=== PATIENT | male | born 1965 | race Caucasian/White ===

== ENCOUNTER 2017-09-20 16:03 | Emergency (ER) | payer OTHER ==
[~2017-09-20] VITALS: Ht 172.7 cm; Wt 86.0 kg
[2017-09-20 16:05] VITALS: BP 166/87; PULSE 112; RESP 19; O2SAT 98
[2017-09-20] MEDS ORDERED: METOCLOPRAMIDE HCL 10 MG/2 ML VIAL IV PUSH ONE (16:15)
[2017-09-20] MEDS ORDERED: diphenhydrAMINE HCL 50 MG/ML VIAL IV PUSH ONE (16:15)
[2017-09-20] MEDS ORDERED: SODIUM CHLOR 0.9% 1000 ML INJ 1,000 ML IV ONE ×2 (16:15→17:00)
--- NOTE | 2017-09-20 16:19 | PD ---
HPI Chief Complaint: Cold / Flu Symptoms Time Seen by Provider: 16:06 Travel History International Travel<30 days: No Contact w/Intl Traveler<30days: No Traveled to known affect area: No History of Present Illness HPI 52-year-old male complains of fever, headache, congestion, abdominal cramping, nausea, poor appetite, tachycardia. Patient states that symptoms started 4 days ago. Patient states that the symptoms got progressively worse since then. Patient states that he has mild aching headache. Patient denies any visual change. Patient denies any neck pain. Patient denies any chest pain or shortness of breath. Patient states that he has intermittent abdominal cramping diffuse over the abdomen. Patient denies any pain radiation. Patient states that he has intermittent fever for the past 4 days. Patient denies any dysuria frequency. Patient denies any back pain. Patient complaint generalized malaise and weakness. PFSH Past Medical History Medical History: Denies Significant Hx Diminished Hearing: No Tetanus Vaccination: > 5 Years Past Surgical History Surgical History: No Previous Surgery Social History Alcohol Use: No Tobacco Use: No Substance Use: No Allergies-Medications (Allergen,Severity, Reaction): Coded Allergies: No Known Allergies (Unverified , 09/20/17) Review of Systems General / Constitutional: Positive: Fever Eyes: No: Visual changes HENT: Positive: Headaches Cardiovascular: No: Chest Pain or Discomfort Respiratory: No: Shortness of Breath Gastrointestinal: Positive: Nausea, Abdominal Pain Genitourinary: No: Dysuria Musculoskeletal: No: Pain Skin: No Rash Neurologic: No: Weakness Psychiatric: No: Depression Endocrine: No: Polydipsia Hematologic/Lymphatic: No: Easy Bruising Physical Exam Narrative GENERAL: Well-nourished, well-developed patient. SKIN: Focused skin assessment warm/dry. HEAD: Normocephalic. EYES: No scleral icterus. No injection or drainage. NECK: Supple, trachea midline. No JVD or lymphadenopathy. No meningismus CARDIOVASCULAR: Regular rate and rhythm without murmurs, gallops, or rubs. RESPIRATORY: Breath sounds equal bilaterally. No accessory muscle use. GASTROINTESTINAL: Abdomen soft, nondistended. Patient has mild diffuse tenderness over the abdomen. No rebound tenderness. No mass. MUSCULOSKELETAL: No cyanosis, or edema. BACK: Nontender without obvious deformity. No CVA tenderness. Neurologic exam normal. Data Data Last Documented VS Vital Signs Date Time Temp Pulse Resp B/P (MAP) Pulse Ox O2 Delivery O2 Flow Rate FiO2 09/20/17 16:29 98 Room Air 09/20/17 16:05 112 19 166/87 (113) Orders Orders Electrocardiogram (09/20/17 16:06) Complete Blood Count With Diff (09/20/17 16:06) Comprehensive Metabolic Panel (09/20/17 16:06) Creatine Kinase (Cpk) (09/20/17 16:06) Troponin I (09/20/17 16:06) Prothrombin Time / Inr (Pt) (09/20/17 16:06) Act Partial Throm Time (Ptt) (09/20/17 16:06) Blood Culture (09/20/17 16:06) Lipase (09/20/17 16:06) Urinalysis - C+S If Indicated (09/20/17 16:06) Influenzae A/B Antigen (09/20/17 16:06) Chest, Single Ap (09/20/17 16:06) Iv Access Insert/Monitor (09/20/17 16:06) Ecg Monitoring (09/20/17 16:06) Oximetry (09/20/17 16:06) Lactic Acid (09/20/17 16:06) Sodium Chlor 0.9% 1000 Ml Inj (Ns 1000 M (09/20/17 16:15) Metoclopramide Inj (Reglan Inj) (09/20/17 16:15) Diphenhydramine Inj (Benadryl Inj) (09/20/17 16:15) Acetaminophen 1000 Mg/100 Ml (Ofirmev 10 (09/20/17 16:30) Morphine Inj (Morphine Inj) (09/20/17 16:30) Sodium Chlor 0.9% 1000 Ml Inj (Ns 1000 M (09/20/17 17:00) Cefepime Inj (Maxipime Inj) (09/20/17 17:00) Azithromycin Inj (Zithromax Inj) (09/20/17 17:00) Levofloxacin (Levaquin) (09/20/17 17:15) Labs Laboratory Tests Test 09/20/17 16:15 White Blood Count 11.3 TH/MM3 Red Blood Count 3.96 MIL/MM3 Hemoglobin 13.1 GM/DL Hematocrit 36.6 % Mean Corpuscular Volume 92.6 FL Mean Corpuscular Hemoglobin 33.0 PG Mean Corpuscular Hemoglobin Concent 35.7 % Red Cell Distribution Width 12.5 % Platelet Count 270 TH/MM3 Mean Platelet Volume 8.4 FL Neutrophils (%) (Auto) 74.9 % Lymphocytes (%) (Auto) 14.6 % Monocytes (%) (Auto) 9.7 % Eosinophils (%) (Auto) 0.4 % Basophils (%) (Auto) 0.4 % Neutrophils # (Auto) 8.5 TH/MM3 Lymphocytes # (Auto) 1.7 TH/MM3 Monocytes # (Auto) 1.1 TH/MM3 Eosinophils # (Auto) 0.0 TH/MM3 Basophils # (Auto) 0.0 TH/MM3 CBC Comment DIFF FINAL Differential Comment Prothrombin Time 10.3 SEC Prothromb Time International Ratio 1.0 RATIO Activated Partial Thromboplast Time 29.4 SEC Blood Urea Nitrogen 11 MG/DL Creatinine 1.14 MG/DL Random Glucose 128 MG/DL Albumin 3.6 GM/DL Calcium Level 9.1 MG/DL Aspartate Amino Transf (AST/SGOT) 30 U/L Alanine Aminotransferase (ALT/SGPT) 39 U/L Sodium Level 140 MEQ/L Potassium Level 4.0 MEQ/L Chloride Level 107 MEQ/L Carbon Dioxide Level 25.0 MEQ/L Anion Gap 8 MEQ/L Estimat Glomerular Filtration Rate 67 ML/MIN Lipase 151 U/L [facility] Medical Decision Making Medical Screen Exam Complete: Yes Emergency Medical Condition: Yes Interpretation(s) Last Impressions Chest X-Ray 09/20/17 1606 Signed Impressions: CONCLUSION: Right perihilar bronchopneumonia. Differential Diagnosis Differential diagnoses including viral syndrome, pneumonia, gastroenteritis, dehydration, electrolyte imbalance, sepsis. Narrative Course 52-year-old male with headache, fever, congestion, abdominal cramping, nausea, poor appetite and tachycardia. Diagnosis Primary Impression: Pneumonia Qualified Codes: J18.1 - Lobar pneumonia, unspecified organism Additional Impression: Dehydration Patient Instructions: General Instructions Additional Instructions: Levaquin as directed. Take medications as directed. Follow-up with personal physician. Return if worse. Tylenol for fever. Med/Other Pt SpecificInfo: Prescription(s) given Scripts [Phenergan W Codein] No Conflict Check 10 ML PO Q8HR for Cough, #180 Prov: Damir Predomo MD 09/20/17 Metoclopramide (Reglan) 10 Mg Tab 10 MG PO TIDAC, #15 TAB 0 Refills Prov: Damir Perdomo MD 09/20/17 Ondansetron Odt (Zofran Odt) 4 Mg Tab 4 MG SL Q6HR Y for Nausea/Vomiting, #12 TAB 0 Refills Prov: Damir Perdomo MD 09/20/17 Levofloxacin (Levaquin) 750 Mg Tablet 750 MG PO DAILY for Infection, #10 TAB 0 Refills Prov: Damir Perdomo MD 09/20/17 Disposition: 01 DISCHARGE HOME Condition: Stable Damir Perdomo MD Sep 20, 2017 16:19
[2017-09-20 16:29] VITALS: O2SAT 98
[2017-09-20] MEDS ORDERED: MORPHINE SULFATE 4 MG/ML INJ IV PUSH ONE (16:30)
[2017-09-20] MEDS ORDERED: ACETAMINOPHEN 1000 MG/100 ML 100 ML IV ONE (16:30)
--- NOTE | 2017-09-20 16:40 | RADRPT ---
EXAM DATE: 09/20/2017 4:18 PM EDT AGE/SEX: 52 years / Male INDICATIONS: Head and body aches CLINICAL DATA: This is the patient's initial encounter. Patient reports that signs and symptoms have been present for 4 - 6 days and indicates a pain score of 0/10. MEDICAL/SURGICAL HISTORY: None. None. COMPARISON: No prior exams available for comparison. FINDINGS: There is a right perihilar airspace disease most characteristic of bronchopneumonia. Minimal left bas ilar atelectasis. No significant effusion. No pneumothorax. Mildly tortuous aorta. CONCLUSION: Right perihilar bronchopneumonia. Electronically signed by: Renan Schultz MD 09/20/2017 4:39 PM EDT
[2017-09-20 16:42] LABS: AUTOMATED NEUTROPHIL # 8.5 TH/MM3 (1.8-7.7); BASOPHIL % 0.4 % (0.0-2.0); EOSINOPHIL % 0.4 % (0.0-4.0); HEMATOCRIT 36.6 % (39.0-51.0); HEMOGLOBIN 13.1 GM/DL (13.0-17.0); LYMPH % 14.6 % (9.0-44.0); LYMPHOCYTE # 1.7 TH/MM3 (1.0-4.8); MEAN CELL VOLUME 92.6 FL (80.0-100.0); MEAN CORPUSCULAR HGB CONC 35.7 % (32.0-36.0); MEAN PLATELET VOLUME 8.4 FL (7.0-11.0); MONO % 9.7 % (0.0-8.0); MONOCYTE # 1.1 TH/MM3 (0-0.9); NEUT % 74.9 % (16.0-70.0); PLATELET COUNT 270 TH/MM3 (150-450); RED BLOOD COUNT 3.96 MIL/MM3 (4.50-5.90); RED CELL DISTRIBUTION WIDTH 12.5 % (11.6-17.2); WHITE BLOOD COUNT 11.3 TH/MM3 (4.0-11.0)
[2017-09-20] MEDS ORDERED: CEFEPIME INJ 1,000 MG in SODIUM CHLORIDE 0.9% INJ 100 ML IV ONE (17:00)
[2017-09-20] MEDS ORDERED: AZITHROMYCIN INJ 500 MG in SODIUM CHLOR 0.9% 250 ML INJ 250 ML IV ONE (17:00)
[2017-09-20 17:02] LABS: ALBUMIN 3.6 GM/DL (3.4-5.0); ALT (GPT) 39 U/L (12-78); AST (GOT) 30 U/L (15-37); BLOOD UREA NITROGEN 11 MG/DL (7-18); CALCIUM 9.1 MG/DL (8.5-10.1); CHLORIDE 107 MEQ/L (98-107); CREATININE 1.14 MG/DL (0.60-1.30); GLOMERULAR FILTRATION RATE 67 ML/MIN (>89); GLUCOSE,RANDOM 128 MG/DL (74-106); PROTHROMBIN TIME - PATIENT 10.3 SEC (9.8-11.6); SODIUM (NA) 140 MEQ/L (136-145)
[2017-09-20 17:06] LABS: ALKALINE PHOSPHATASE 72 U/L (45-117); TOTAL BILIRUBIN ADULT 0.5 MG/DL (0.2-1.0); TOTAL PROTEIN 7.7 GM/DL (6.4-8.2); TROPONIN I LESS THAN 0.02 NG/ML (0.02-0.05)
[2017-09-20] MEDS ORDERED: LEVA750T9 PO (17:07)
[2017-09-20] MEDS ORDERED: ZOFR4TAB3 SL (17:07)
[2017-09-20] MEDS ORDERED: REGL10TA5 PO (17:07)
[2017-09-20] MEDS ORDERED: PHENERGAN W CODEIN PO (17:07)
[2017-09-20] MEDS ORDERED: LEVOFLOXACIN 500 MG TAB PO ONE (17:15)
[2017-09-20 17:22] VITALS: RESP 18
--- NOTE | 2017-09-21 23:19 | EKG ---
Date Performed: 09/20/2017 Time Performed: 16:31:08 PTAGE: 52 years EKG: SINUS TACHYCARDIA NONSPECIFIC T-WAVE ABNORMALITY ABNORMAL RHYTHM ECG NO PREVIOUS TRACING DOCTOR: Godfrey Rodriguez Interpretating Date/Time 09/21/2017 23:18:27
== END 2017-09-20 18:08 | disposition home or self-care (01) ==
LOC: NEPE 16:03
DX: J18.1 Lobar pneumonia, unspecified organism (principal); E86.0 Dehydration; R94.31 Abnormal electrocardiogram [ECG] [EKG]; R11.0 Nausea; R10.9 Unspecified abdominal pain; R00.0 Tachycardia, unspecified
CPT/HCPCS: 71045; 80053; 82550; 83605; 83690; 84484; 85025; 85610; 85730; 87040; 87804; 93005; 96361; 96365; 96375; 99285; J0131; J0456; J0692; J1200; J2270; J2765; J7030; J7050